=== PATIENT | female | born 1990 | race Caucasian/White ===

== ENCOUNTER 2021-05-17 02:19 | Emergency (ER) | payer OTHER ==
[~2021-05-17] VITALS: Ht 170.2 cm; Wt 64.1 kg
--- NOTE | 2021-05-17 02:27 | NUR ---
EKG DONE IN TRIAGE.
[2021-05-17 04:37] LABS: BASOPHILS % (AUTO) 1 % (0-1); EOSINOPHILS % (AUTO) 1 % (1-7); LYMPHOCYTES % (AUTO) 28 % (22-44); MEAN CORPUSCULAR HGB CONC 34.7 g/dL (32.4-35.8); MEAN PLATELET VOLUME 6.4 fL (7.4-10.4); MONOCYTES % (AUTO) 5 % (2-9); NEUTROPHILS % (AUTO) 66 % (42-75); PLATELET COUNT 349 x10^3/uL (130-400); RED BLOOD COUNT 5.02 x10^6/uL (3.82-5.3); RED CELL DISTRIBUTION WIDTH 12.6 % (9.6-15.2)
[2021-05-17 04:48] LABS: ALBUMIN 3.6 g/dL (3.4-5.0); ANION GAP 7 mmol/L (5-15); CHLORIDE 108 mmol/L (98-107)
[2021-05-17 04:53] LABS: ALANINE AMINOTRANSFERASE 28 U/L (12-78); ALKALINE PHOSPHATASE 71 U/L (45-117); BILIRUBIN,TOTAL 0.3 mg/dL (0.2-1.0); CREATININE 0.65 mg/dL (0.55-1.02); TOTAL PROTEIN 7.1 g/dL (6.4-8.2)
[2021-05-17 04:55] LABS: SALICYLATE LEVEL < 1.7 mg/dL (2.8-20.0)
[2021-05-17 05:14] LABS: AMPHETAMINE SCREEN, URINE Negative (Negative); BARBITURATE SCREEN, URINE Negative (Negative); BENZODIAZEPINE SCREEN, URINE Negative (Negative); CANNABINOID SCREEN, URINE Negative (Negative); COCAINE SCREEN, URINE Negative (Negative); METHADONE SCREEN, URINE Negative (Negative); OPIATE SCREEN, URINE Negative (Negative)
[2021-05-17] MEDS ORDERED: SODIUM CHLORIDE 0.9% 1,000ML IVBOLUS ONE ×2 (06:00→07:00)
[2021-05-17] MEDS ORDERED: LORazepam 2 MG/ML, 1ML IVPush ONE (06:00)
[2021-05-17] MEDS ORDERED: SODIUM CHLORIDE FLUSH 10ML SYR IVF ONE (06:00)
[2021-05-17] MEDS ORDERED: LORazepam 2 MG/ML, 1ML ONE (06:05)
--- NOTE | 2021-05-17 06:24 | NUR ---
Thomas malone in [facility] - 05/17/21 at 0624 by [email or web address] PT IN BATHROOM ATTEMPTING STOOL AND UA SAMPLE
--- NOTE | 2021-05-17 06:24 | NUR ---
Patient is resting comfortably in bed. Bed in lowest, rails engaged, call light on lap. Vital Signs within normal limits. WCTM. MOTHER AT BEDSIDE.
--- NOTE | 2021-05-17 06:25 | NUR ---
PATIENT PRESENTS REQUESTING ETOH DETOX. LAST DRINK 1 HR AGO REPORTS DRINKING A GALLON OF WINE. DENIES SI/ HI. LAST USE OF COCAINE: 3 WEEKS AGO. TRIAGE NOTE Addendum: 05/17/21 at 0625 by [email or web address] LAST DRINK AT 0030
--- NOTE | 2021-05-17 07:04 | NUR ---
PT UPRIGHT ON GURNEY AWAKE & COMFORTABLE, RESPONDS APPROP TO STAFF, NAD, COMFORT MEASURES PROVIDED, BF AT BS, CALL LIGHT WITHIN REACH.
--- NOTE | 2021-05-17 07:06 | NUR ---
GAVE REPORT TO BRYANT SHETTY, TRANSFER OF CARE
--- NOTE | 2021-05-17 08:05 | NUR ---
PT LAYING ON GURNEY RESTING CALMLY WITH EYES CLOSED, NAD, NO NEEDS AT THIS TIME, BF AT BS, CALL LIGHT WITHIN REACH.
--- NOTE | 2021-05-17 09:02 | NUR ---
PT CONTINUES LAYING ON GURNEY MOSTLY SLEEPING BUT AWAKENS & RESPONDS APPROP TO STAFF, NAD, COMFORT MEASURES PROVIDED, BF AT BS, CALL LIGHT WITHIN REACH.
--- NOTE | 2021-05-17 09:29 | NUR ---
Patient given discharge instructions and they have confirmed that they understand the instructions. Patient ambulatory with steady gait. NAD, all questions answered appropriately, denies additional needs at this time. No personal belongings left in room after discharge.
[2021-05-17 09:50] VITALS: BP 95/65
== END 2021-05-17 10:01 | disposition home or self-care (01) ==
LOC: ED 05:39
DX: O26.891 Other specified pregnancy related conditions, first trimester (principal); E86.0 Dehydration; F10.220 Alcohol dependence with intoxication, uncomplicated; Z3A.01 Less than 8 weeks gestation of pregnancy; Y90.0 Blood alcohol level of less than 20 mg/100 ml
CPT/HCPCS: 36415; 80053; 80299; 80307; 80320; 80329; 84702; 84703; 85025; 93005; 96361; 96374; 99285; J2060; J7030; G0480